=== PATIENT | male | born 1995 | race Caucasian/White ===

== ENCOUNTER → 2018-01-13 | Outpatient (CLI) | payer OTHER ==
--- NOTE | 2018-01-13 09:16 | DIAGNOSTIC IMAGING REPORT ---
PELVIS ONE VIEW HISTORY: LEFT HAMSTRING INJURY COMPARISON: None. FINDINGS: There is no fracture or dislocation. Specifically, no evidence for an avulsion fracture at the ischial tuberosities. Soft tissues are unremarkable. No radiopaque foreign bodies. IMPRESSION: No fracture or dislocation within the pelvis or hips. Electronically signed by: Adrian Macedo M.D. 01/13/2018 9:15 AM Dictated Date/Time: 01/13/2018 9:14 AM
== END | disposition home or self-care (01) ==
LOC: C.RDSM 09:05
PROVIDERS: ATTEND Internal Medicine
DX: S76.302A Unspecified injury of muscle, fascia and tendon of the posterior muscle group at thigh level, left thigh, initial encounter (principal); X58.XXXA Exposure to other specified factors, initial encounter; Z91.040 Latex allergy status

== ENCOUNTER → 2018-01-16 | Outpatient (CLI) | payer OTHER ==
--- NOTE | 2018-01-16 16:48 | DIAGNOSTIC IMAGING REPORT ---
MRI OF THE LEFT LOWER EXTREMITY WITHOUT IV CONTRAST CLINICAL HISTORY: Hamstrings injury. COMPARISON STUDY: Pelvic radiographs dated 01/13/2018. TECHNIQUE: MRI of the left lower extremity is performed from the hip to the knee utilizing various T1 and T2-weighted sequences in the axial, sagittal, and coronal planes. IV contrast was not administered for this examination. FINDINGS: Normal marrow signal intensity is preserved throughout the femur. There is no MRI evidence of fracture. There is evidence of osteonecrosis involving the femoral head. The hip joint is normal as imaged. Mild trochanteric bursitis is identified. The origin of the left hamstrings tendon is intact. There is thinning of the tendon distally at the musculotendinous junction without full-thickness tear. There is intramuscular edema and fluid seen within the body of the biceps femoris muscle at the musculotendinous junction consistent with muscular strain/tear. No large hematoma is identified. There is trace fluid seen between the biceps femoris and semitendinosus muscles. Only mild intramuscular edema is seen within the body of semitendinosus. The musculature of the thigh is otherwise normal as imaged. The knee joint is intact as visualized. The cruciate ligaments, collateral ligaments, and menisci are intact as imaged. There is no knee joint effusion. No osteochondral abnormality is suggested. A tiny popliteal cyst is observed. IMPRESSION: 1. There is high-grade strain/tearing involving the biceps femoris at the musculotendinous junction. No full-thickness tear is seen and there is no musculotendinous retraction. 2. No large hematoma is identified. The origin of the left hamstrings tendon appears maintained. 3. Only mild edema is seen within the body of semitendinosus. 4. No osseous abnormality is identified. 5. The hip and knee joints are intact as visualized. Dictated: 01/16/2018 4:25 PM Transcribed: 01/16/2018 4:48 PM [email or web address] Electronically signed by: Chad Sinha M.D. 01/17/2018 8:05 AM Dictated Date/Time: 01/16/2018 4:25 PM
== END | disposition home or self-care (01) ==
LOC: C.MRI 13:34
PROVIDERS: ATTEND Internal Medicine
DX: S76.302A Unspecified injury of muscle, fascia and tendon of the posterior muscle group at thigh level, left thigh, initial encounter (principal); X58.XXXA Exposure to other specified factors, initial encounter